=== PATIENT | male | born 1995 | race Two or more races ===

== ENCOUNTER 2020-07-26 17:20 | Emergency (ER) | payer OTHER ==
[~2020-07-26] VITALS: Ht 165.1 cm; Wt 70.0 kg
[2020-07-26 18:12] VITALS: BP 108/57
[2020-07-26] MEDS ORDERED: IBUPROFEN 600MG TABLET PO ONE (18:15)
[2020-07-26] MEDS ORDERED: IBUP-2029 MT (19:22)
== END 2020-07-26 19:53 | disposition home or self-care (01) ==
LOC: ER 17:20
DX: M25.531 Pain in right wrist (principal); V19.3XXA Pedal cyclist (driver) (passenger) injured in unspecified nontraffic accident, initial encounter; Y93.89 Activity, other specified; Y92.9 Unspecified place or not applicable
CPT/HCPCS: 29125; 73110; 99283